=== PATIENT | female | born 1935 | race Caucasian/White ===

== ENCOUNTER 2017-01-11 21:22 | Emergency (ER) | payer OTHER ==
[2017-01-11 21:22] VITALS: BMI 20.2
[2017-01-11 21:40] VITALS: BP 157/77; PULSE 70; RESP 20; TEMP 98.1; O2SAT 97
--- NOTE | 2017-01-11 22:40 | C.PDOC ---
History Of Present Illness 82 year old female presents to the ED with complaints of feeling as though a "ball" is in her throat for approximately three days. She notes slight discomfort to the lower neck area when swallowing. Patient denies any neck swelling, URI symptoms, or fever. Time Seen by Provider: 01/11/17 21:59 Chief Complaint (Nursing): ENT Problem History Per: Patient History/Exam Limitations: None Onset/Duration Of Symptoms: Days (3 days ) Current Symptoms Are (Timing): Still Present Anticoagulant/Antiplatlet Use?: No Recent Aspirin Use: No Past Medical History Reviewed: Historical Data, Nursing Documentation, Vital Signs Vital Signs: Last Vital Signs Temp 98.1 F 01/11/17 21:36 Pulse 70 01/11/17 21:36 Resp 20 01/11/17 21:36 BP 157/77 H 01/11/17 21:36 Pulse Ox 97 01/12/17 05:55 - Medical History PMH: HTN - [facility] Procedures ESOPHAGOGASTRODUODENOSCOPY [EGD] W/CLOSED BIOPSY (06/19/13) Family History: States: Unknown Family Hx - Social History Hx Alcohol Use: No Hx Substance Use: No Review Of Systems Constitutional: Negative for: Fever, Chills ENT: Positive for: Other (feels as though a ball is in her throat ) Cardiovascular: Negative for: Chest Pain, Palpitations Respiratory: Negative for: Cough, Shortness of Breath Gastrointestinal: Negative for: Nausea, Vomiting, Abdominal Pain, Diarrhea Physical Exam - Physical Exam Appears: Non-toxic, No Acute Distress Skin: Warm, Dry Head: Atraumatic Eye(s): bilateral: Normal Inspection, PERRL, EOMI Oral Mucosa: Moist Throat: Normal, No Erythema, No Exudate Neck: Supple, Other (no neck swelling. No palpable mass in the the neck. Thyroid gland feels normal. ) Lymphatic: No Adenopathy Chest: Symmetrical, No Deformity Cardiovascular: Rhythm Regular Respiratory: Normal Breath Sounds, No Rales, No Rhonchi, No Wheezing Gastrointestinal/Abdominal: Soft, No Tenderness, No Distention, No Guarding, No Rebound Neurological/Psych: Oriented x3 ED Course And Treatment O2 Sat by Pulse Oximetry: 97 (room air ) Pulse Ox Interpretation: Normal Progress Note: pt is stable in NAD , understands to follow up with PMD or ENT Disposition Counseled Patient/Family Regarding: Diagnosis, Need For Followup - Disposition Referrals: Kavon Hernandez MD [Staff Provider] - Disposition: HOME/ ROUTINE Disposition Time: 22:37 Condition: STABLE Additional Instructions: Take advil for pain Gargle with warm salt water Follow up with PMD or ENT Return to ER if worse Instructions: Pharyngitis (ED) Print Language: [id number] - Clinical Impression Clinical Impression: Sore throat - Scribe Statement The provider has reviewed the documentation as recorded by the Scribevan Rudolph All medical record entries made by the Kiaraibevan were at my direction and personally dictated by me. I have reviewed the chart and agree that the record accurately reflects my personal performance of the history, physical exam, medical decision making, and the department course for this patient. I have also personally directed, reviewed, and agree with the discharge instructions and disposition.
== END 2017-01-11 22:45 | disposition home or self-care (01) ==
LOC: EDBD 21:22 → C.ER 21:22
DX: J02.9 Acute pharyngitis, unspecified (principal); I10 Essential (primary) hypertension